=== PATIENT | female | born 1960 | race Caucasian/White ===

== ENCOUNTER 2019-05-19 13:31 | Emergency (ER) | payer OTHER ==
[~2019-05-19] VITALS: Ht 165.1 cm; Wt 90.7 kg
[~2019-05-19 13:31] MED LIST: ANTIVERT25 MG PO; B12INJ IM; FISH OIL 1,001000 M2 PO; HEARTBURN; LISINOPRIL10 MG PO; MEDROLDOSEPACK PO; MICROZIDE12.5 MG PO; NAPROSYN500 MG PO; NOHOMEMEDICATIONS; NORCO 5-325 TA1 EACH PO; PROVENTIL HFA6.7 G1 INH; TESSALON PERLE100 MG PO
[2019-05-19 14:07] LABS: ABSOLUTE BASOPHILS 0.1 thou/uL (0.0-0.2); ABSOLUTE EOSINOPHILS 0.1 thou/uL (0.0-0.7); ABSOLUTE MONOCYTES 0.5 thou/uL (0.0-1.2); ABSOLUTE NEUTROPHILS 6.3 thou/uL (1.6-8.1); BASOPHILS 1.1 %; EOSINOPHILS 1.4 %; HEMATOCRIT 46.8 % (37.0-47.0); LYMPHOCYTES 21.9 %; MCH 28.9 pg (26.0-34.0); MCHC 34.2 g/dL (28.0-37.0); MCV 84.4 fL (80.0-100.0); MONOCYTES 5.7 %; MPV 7.7 fl. (7.2-11.1); NUCLEATED RBCS 0 /100WBC; PLATELET COUNT* 272 thou/uL (150-400); POLYS 69.9 %; RBC 5.55 mil/uL (4.20-5.00); RDW-CV 13.5 % (10.5-14.5)
[2019-05-19 14:19] LABS: CALCIUM 9.2 mg/dL (8.5-10.1); CREATININE 0.7 mg/dL (0.6-1.3); POTASSIUM 3.8 mmol/L (3.5-5.1)
[2019-05-19 14:23] LABS: ALBUMIN 3.4 g/dL (3.4-5.0); TOTAL BILIRUBIN 0.8 mg/dL (<0.1-1.0); TOTAL PROTEIN 7.4 g/dL (6.4-8.2)
[2019-05-19 15:29] LABS: URINE BILIRUBIN NEGATIVE (Negative); URINE BLOOD NEGATIVE (Negative); URINE CLARITY CLEAR; URINE COLOR YELLOW; URINE GLUCOSE-RANDOM NEGATIVE (Negative); URINE KETONES NEGATIVE (Negative); URINE LEUKOCYTES-REFLEX TRACE (Negative); URINE NITRITE-REFLEX NEGATIVE (Negative); URINE PROTEIN TRACE (Negative); URINE SPECIFIC GRAVITY 1.015 (1.005-1.030)
[2019-05-19 15:37] LABS: MUCUS 0-3 Light strn/LPF (None Seen); SQUAMOUS >10 Many /LPF (0-3)
[2019-05-19 15:38] LABS: CASTS None Seen /LPF (None Seen); CRYSTALS None Seen /LPF (None Seen); URINE RBC None Seen /HPF (0-2); URINE WBC-REFLEX 0-5 Rare /HPF (0-5)
[2019-05-19 15:39] LABS: AMP/METHAMP POSITIVE (Negative); BARBITURATES Negative (Negative); BENZODIAZEPINES Negative (Negative); COCAINE Negative (Negative); METHADONE Negative (Negative); OPIATES Negative (Negative); PCP Negative (Negative); THC POSITIVE (Negative)
[2019-05-19] MEDS ORDERED: CIPRO500 MG PO (16:12)
[2019-05-19] MEDS ORDERED: VERTICALM25 MG PO (16:12)
[2019-05-19 16:20] VITALS: BP 152/86
--- NOTE | 2019-05-22 14:28 | EKG ---
[place] [address] ELECTROCARDIOGRAM REPORT Name: ANGEL CALVIN Room: [facility]#: [id number] Admission: 05/19/19 Attend Phys: Discharge: 05/19/19 Date of : 58 Report #: [id number] THIS REPORT FOR: //name// [facility] ED Test Date: 2019-05-19 Test Time: 14:10:19 Pat Name: ANGEL CALVIN Department: Room: Gender: F Management Advisor: : [id number] Requested By: Jasmyn Ward Order Number: [id number] MD: Geovanny Hunter Measurements Intervals [place] Rate: 69 P: 47 VT: 167 QRS: 3 QRSD: 90 T: 28 QT: 418 QTc: 448 Interpretive Statements Sinus rhythm Low voltage, precordial leads Consider anterior infarct Compared to ECG 06/04/2015 13:17:05 Low QRS voltage now present Posssible Myocardial infarct finding now present Electronically Signed On 05-22-2019 14:27:49 CDT by Geovanny Hunter [email or web address] <ELECTRONICALLY SIGNED> By: Geovanny Hunter MD, [facility] 05/22/19 1427 1410 1410 Geovanny Hunter MD, [facility] /EPI
== END 2019-05-19 16:22 | disposition home or self-care (01) ==
LOC: M.ERS 13:31
PROVIDERS: Personal Emergency Response Attendant
DX: N39.0 Urinary tract infection, site not specified (principal); R42 Dizziness and giddiness; Z98.890 Other specified postprocedural states; Z90.710 Acquired absence of both cervix and uterus; Z88.5 Allergy status to narcotic agent; Z88.2 Allergy status to sulfonamides; Z79.899 Other long term (current) drug therapy